=== PATIENT | male | born 1995 | race African-American/Black ===

== ENCOUNTER 2017-03-26 15:20 | Emergency (ER) | payer OTHER ==
[~2017-03-26] VITALS: Ht 185.4 cm; Wt 69.0 kg
[~2017-03-26 15:20] MED LIST: MOTRIN600 MG PO; PERCOCET 5/31 TABLET PO; SILVADENE20 GM TP
[2017-03-26] MEDS ORDERED: MOTRIN600 MG PO (16:28)
[2017-03-26] MEDS ORDERED: FLEXERIL5 MG PO (16:28)
[2017-03-26 16:39] VITALS: BP 121/69
== END 2017-03-26 16:40 | disposition home or self-care (01) ==
LOC: EME 15:20
DX: S16.1XXA Strain of muscle, fascia and tendon at neck level, initial encounter (principal); S39.012A Strain of muscle, fascia and tendon of lower back, initial encounter; V49.40XA Driver injured in collision with unspecified motor vehicles in traffic accident, initial encounter; Y92.488 Other paved roadways as the place of occurrence of the external cause; F17.200 Nicotine dependence, unspecified, uncomplicated
CPT/HCPCS: 99281; 99284